=== PATIENT | male | born 1995 | race African-American/Black ===

== ENCOUNTER 2017-06-09 16:59 | Emergency (ER) | payer MEDICAID, OTHER ==
[~2017-06-09] VITALS: Ht 172.7 cm; Wt 96.0 kg
[2017-06-09 17:06] VITALS: BP 132/77
== END 2017-06-09 18:37 | disposition left against medical advice (07) ==
LOC: ER 17:37
DX: Z53.21 Procedure and treatment not carried out due to patient leaving prior to being seen by health care provider (principal)

== ENCOUNTER 2020-02-07 21:34 | Emergency (ER) | payer SELFPAY ==
[~2020-02-07] VITALS: Ht 177.8 cm; Wt 103.0 kg
[2020-02-07] MEDS ORDERED: TETANUS, DIPHTHERIA, PERTUSSIS VAC/PF 0.5ML (>7YR OLD) IM ONE (23:45)
[2020-02-07] MEDS ORDERED: BACITRACIN ZINC OINT UDPKT TOP ONE (23:45)
[2020-02-07] MEDS ORDERED: IBUPROFEN 600MG TABLET PO ONE (23:45)
[2020-02-08 00:30] VITALS: BP 138/82
== END 2020-02-08 00:33 | disposition home or self-care (01) ==
LOC: ER 21:34
DX: S81.812A Laceration without foreign body, left lower leg, initial encounter (principal); L08.9 Local infection of the skin and subcutaneous tissue, unspecified; Z90.49 Acquired absence of other specified parts of digestive tract; W26.8XXA Contact with other sharp object(s), not elsewhere classified, initial encounter; Y93.89 Activity, other specified; Y92.89 Other specified places as the place of occurrence of the external cause
CPT/HCPCS: 99283